=== PATIENT | female | born 1970 | race Caucasian/White ===

== ENCOUNTER 2016-04-02 13:26 | Emergency (ER) | payer OTHER ==
--- NOTE | 2016-04-02 13:49 | ERPHSYRPT ---
- History of Present Illness Time Seen by Provider: 04/02/16 13:42 Historian: patient, police Exam Limitations: no limitations Patient Subjective Stated Complaint: pt arrived police, pt is offender at local long term and is now co pain to center of chest since 1130 today. with some sob the last month, cough yellow sputum. no fever Triage Nursing Assessment: alert,skin w/d, resp easy,chest clear, no edema noted. moves all ext Physician History: The patient is a 45-year-old female who is an inmate at the local long term complaining of chest pain for about 3 hours. She's had this chest pain intermittently for the last 2 weeks. The chest pain usually lasts several hours and goes away. The chest pain is worse with deep breathing. She has had a cough for 2 weeks with yellow sputum. Pt complains fo swelling of ankles. Her past medical history is significant for COPD, CHF, and hypertension. Timing/Duration: hour(s) (3) Activities at Onset: none Quality: aching Location: central Chest Pain Radiation: no radiation Severity of Pain-Max: moderate Severity of Pain-Current: moderate Modifying Factors: Improves With: breathing, coughing Associated Symptoms: shortness of breath, hurts to breathe Prior Chest Pain/Cardiac Workup: non-cardiac Nitro Today/Relief: no nitro taken today Aspirin Treatment Today: 81 mg x 1 Allergies/Adverse Reactions: No Known Drug Allergies Allergy (Verified 04/02/16 13:47) Home Medications: Aspirin 81 gm Chew [Baby Aspirin 81 mg Chew] 81 mg PO DAILY 03/18/13 [ History] Carvedilol 3.125 mg [Coreg 3.125 MG] 12.5 mg PO BID 03/18/13 [History] Potassium Chloride 20 Meq [Klor-Con 20 MEQ] 20 meq PO DAILY 03/18/13 [History] Spironolactone 25 mg [Aldactone 25 MG] 25 mg PO DAILY 03/18/13 [History] Albuterol 2.5 mg/3 ml Neb [Proventil 2.5 mg/3 ml Neb] 2.5 mg IH BID [History] Digoxin 0.125 mg Tablet [Lanoxin 0.125MG TABLET] 0.125 mg PO DAILY [History] Albuterol 8 gm Mdi Hfa [Ventolin Hfa MDI] 8 gm IH BID 11/23/15 [History] Hx Tetanus, Diphtheria Vaccination/Date Given: No Hx Influenza Vaccination/Date Given: No Hx Pneumococcal Vaccination/Date Given: No Immunizations Up to Date: Yes - Review of Systems Constitutional: No Fever, No Chills Eyes: No Symptoms Ears, Nose, & Throat: No Symptoms Respiratory: Cough, Dyspnea Cardiac: Chest Pain Abdominal/Gastrointestinal: No Abdominal Pain, No Nausea, No Vomiting, No Diarrhea Genitourinary Symptoms: No Dysuria Musculoskeletal: No Back Pain, No Neck Pain Skin: No Rash Neurological: No Dizziness, No Focal Weakness, No Sensory Changes Psychological: No Symptoms Endocrine: No Symptoms Hematologic/Lymphatic: No Symptoms, Easy Bruising All Other Systems: Reviewed and Negative - Past Medical History Pertinent Past Medical History: Yes Neurological History: No Pertinent History ENT History: No Pertinent History Cardiac History: Congestive Heart Failure Respiratory History: CHF, COPD, Other Endocrine Medical History: No Pertinent History Musculoskeletal History: Arthritis, Fibromyalgia GI Medical History: Gallbladder Disease, Irritable Bowel, Other History: No Pertinent History Psycho-Social History: Anxiety, Depression Female Reproductive Disorders: No Pertinent History Other Medical History: manic depression, - Past Surgical History Past Surgical History: Yes Neuro Surgical History: No Pertinent History Cardiac: No Pertinent History Respiratory: No Pertinent History Gastrointestinal: No Pertinent History, Cholecystectomy Genitourinary: No Pertinent History Musculoskeletal: No Pertinent History Female Surgical History: Lumpectomy Other Surgical History: TONSIL - Social History Smoking Status: Current some day smoker How long have you smoked: 20 YEARS Exposure to second hand smoke: No Drug Use: methamphetamines Patient Lives Alone: No - Female History Hx Last Menstrual Period: Hx Now: No - Nursing Vital Signs Temperature: 97.4 F Temperature Source: Oral Pulse Rate: 79 Respiratory Rate: 14 Blood Pressure: 139/80 Pain Intensity: 8 - Physical Exam General Appearance: no apparent distress, alert Eye Exam: PERRL/EOMI, eyes nml inspection Ears, Nose, Throat Exam: normal ENT inspection, moist mucous membranes Neck Exam: normal inspection, non-tender, supple, full range of motion Respiratory Exam: normal breath sounds, chest tenderness Cardiovascular Exam: regular rate/rhythm, normal heart sounds Gastrointestinal/Abdomen Exam: soft, No tenderness, No mass Pelvic Exam: not done Rectal Exam: not done Back Exam: normal inspection, No CVA tenderness, No vertebral tenderness Extremity Exam: normal inspection, normal range of motion, pedal edema (1+) Neurologic Exam: alert, oriented x 3, cooperative, normal mood/affect, sensation nml, No motor deficits Skin Exam: normal color, warm, dry SpO2 Interpretation: normal SpO2: 100 Oxygen Delivery: Room Air - Course EKG Interpreted by Me: Sinus Rhythm, NORMAL AXIS, NORMAL INTERVALS, NORMAL QRS, NORMAL ST-T (No change compared to EKG 11/23/15.) - Radiology Exams Chest X-ray Interpretation: Teleradiologist Report, Negative Ordered Tests: Active Orders 24 hr Category Date Time Status CHEST 2 VIEWS (PA AND LAT) Stat Exams 04/02/16 13:50 Completed CBC W DIFF Stat Lab 04/02/16 14:02 Completed CMP Stat Lab 04/02/16 14:02 Completed DIGOXIN Stat Lab 04/02/16 14:02 Completed NT PRO BNP Stat Lab 04/02/16 14:02 Completed TROPONIN Q3H Lab 04/02/16 17:00 Ordered TROPONIN Q3H Lab 04/02/16 20:00 Ordered TROPONIN Q3H Lab 04/02/16 23:00 Ordered TROPONIN Q3H Lab 04/03/16 02:00 Ordered TROPONIN Stat Lab 04/02/16 14:02 Completed Medication Summary Discontinued Medications Generic Name Dose Route Start Last Admin Trade Name Freq PRN Reason Stop Dose Admin Ketorolac Tromethamine 60 mg 04/02/16 13:52 04/02/16 14:13 Toradol 30 Mg Injection IM 04/02/16 13:53 60 mg STAT ONE Administration Ketorolac Tromethamine Confirm 04/02/16 14:12 Toradol 30 Mg Injection Administered 04/02/16 14:13 Dose 60 mg .ROUTE .[facility] ONE Lab/Rad Data: Laboratory Result Diagrams 04/02/16 14:02 04/02/16 14:02 Laboratory Results 04/02/16 04/02/16 04/02/16 Range/Units 14:02 14:02 14:02 WBC 6.1 (4.0-10.5) K/mm3 RBC 4.50 (4.1-5.4) M/mm3 Hgb 12.9 (12.0-16.0) gm/dl Hct 39.9 (35-47) % MCV 88.7 (78-100) fl MCH 28.7 (26-32) pg MCHC 32.3 (32-36) g/dl RDW 13.2 (11.5-14.0) % Plt Count 262 (150-450) K/mm3 MPV 9.3 (6-9.5) fl Gran % 56.6 (36.0-66.0) % Lymphocytes % 31.2 (24.0-44.0) % Monocytes % 8.8 (0.0-12.0) % Eosinophils % 2.9 (0.00-5.0) % Basophils % 0.5 (0.0-0.4) % Basophils # 0.03 (0-0.4) Sodium 140 (136-145) mEq/L Potassium 3.6 (3.5-5.1) mEq/L Chloride 100 (98-107) mEq/L Carbon Dioxide 31.3 (21-32) mEq/L Anion Gap 12.5 (5-15) MEQ/L BUN 14 (9-20) mg/dL Creatinine 0.93 (0.55-1.30) mg/dl Estimated GFR > 60 ML/MIN Glucose 102 (70-110) MG/DL Calcium 9.3 (8.5-10.1) mg/dL Total Bilirubin 0.4 (0.2-1.0) mg/dL AST 17 (15-37) U/L ALT 20 (12-78) U/L Alkaline Phosphatase 137 H (46-116) U/L Troponin I < 0.017 (0.000-0.056) ng/ml NT-Pro-B Natriuret Pep < 5.0 (0-125) pg/ml Serum Total Protein 7.7 (6.4-8.2) gm/dL Albumin 4.2 (3.4-5.0) g/dL Digoxin 0.76 L (0.9-2.0) ng/ml - Progress Progress: unchanged Air Movement: good Blood Culture(s) Obtained: No Antibiotics given: No Counseled pt/family regarding: lab results, diagnosis, need for follow-up, rad results - Departure Time of Disposition: 15:11 Departure Disposition: Home Clinical Impression: Chest pain of unknown etiology Condition: Stable Critical Care Time: No Additional Instructions: Tylenol and Ibuprofen as needed. Your lab values and chest xray were normal except for the digoxin level which was slightly low. Follow up with your punch press operator helper.
[2016-04-02] MEDS ORDERED: TORAdol 30 mg Injection IM ONE (13:52)
[2016-04-02 14:11] LABS: BASOPHIL % 0.5 % (0.0-0.4); Eosinophil % 2.9 % (0.00-5.0); Granulocytes % 56.6 % (36.0-66.0); Lymphocytes % 31.2 % (24.0-44.0); Mean Cell Volume 88.7 fl (78-100); Mean Corpuscular Hemoglobin 28.7 pg (26-32); Mean Platelet Volume 9.3 fl (6-9.5); Monocytes % 8.8 % (0.0-12.0); Platelet Count 262 K/mm3 (150-450); Red Cell Distribution Width 13.2 % (11.5-14.0); White Blood Count 6.1 K/mm3 (4.0-10.5)
[2016-04-02] MEDS ORDERED: TORAdol 30 mg Injection ONE (14:12)
--- NOTE | 2016-04-02 14:16 | XRAY ---
Indication: Chest pain and cough. Comparison: March 29, 2016 PA/lateral chest remains hyperinflated and clear with stable right lung calcified granuloma and left Port-A-Cath. Heart is not enlarged. Vascularity normal. Bony thorax intact. Impression: Stable nonacute chest with chronic features.
[2016-04-02 14:39] LABS: ALBUMIN 4.2 g/dL (3.4-5.0); ALKALINE PHOSPHATASE 137 U/L (46-116); ANION GAP 12.5 MEQ/L (5-15); BILIRUBIN,TOTAL 0.4 mg/dL (0.2-1.0); BLOOD UREA NITROGEN 14 mg/dL (9-20); CHLORIDE 100 mEq/L (98-107); Carbon Dioxide 31.3 mEq/L (21-32); Glucose 102 MG/DL (70-110); Potassium 3.6 mEq/L (3.5-5.1); SGOT/AST 17 U/L (15-37); SGPT/ALT 20 U/L (12-78); SODIUM 140 mEq/L (136-145); Total Protein 7.7 gm/dL (6.4-8.2)
[2016-04-02 14:48] LABS: TROPONIN < 0.017 ng/ml (0.000-0.056)
[2016-04-02 15:28] VITALS: BP 112/66; PULSE 67; O2SAT 98
== END 2016-04-02 15:27 | disposition home or self-care (01) ==
LOC: ED 13:26
DX: R07.89 Other chest pain (principal); F41.9 Anxiety disorder, unspecified; J44.9 Chronic obstructive pulmonary disease, unspecified; I50.9 Heart failure, unspecified; I10 Essential (primary) hypertension; Z79.899 Other long term (current) drug therapy
CPT/HCPCS: 36415; 71020; 80053; 80162; 83880; 84484; 85025; 99283; J1642; J1885

== ENCOUNTER 2017-06-14 12:12 | Emergency (ER) | payer OTHER ==
[2017-06-14] MEDS ORDERED: BABY ASPIRIN 81 MG CHEW PO ONE (12:32)
--- NOTE | 2017-06-14 12:40 | ERPHSYRPT ---
- History of Present Illness Time Seen by Provider: 06/14/17 12:34 Historian: patient Exam Limitations: no limitations Patient Subjective Stated Complaint: Pt states "I have been having a hard time with my heart. I have been having chest pain, difficulty breathing and they took me off my water pill so I think I have been swelling as well. I am supposed to go get an echo done tomorrow in [place]." Triage Nursing Assessment: Pt alert and oriented X 3, skin pwd. Pt ambulates without difficulty, able to speak in clear full sentences. PT in no apparent respiratory distress. Physician History: This is a 46-year-old white female with history of congestive heart failure COPD arthritis fibromyalgia. She arrives with complaint of pain in her anterior chest and under her left breast symptoms radiating up to her next going on for one month. She states that she has worse pain with breathing she states she feels short of breath she has no nausea no vomiting no diarrhea. Patient states she is scheduled for an echocardiogram with Dr. Guardado tomorrow. Past medical history includes CHF, COPD, arthritis, fibromyalgia, gallbladder disease, irritable bowel, anxiety, depression, Past surgical history includes cholecystectomy lumpectomy and tonsils Social history patient has used methamphetamines in the past as well as tobacco Patient states she has not had a period for about a year She states she is not Timing/Duration: other (symptoms for a month) Quality: dullness Location: substernal, other (under left breast radiating to neck and left shoulder) Chest Pain Radiation: neck, arm Severity of Pain-Max: moderate Severity of Pain-Current: moderate Modifying Factors: Improves With: nothing Associated Symptoms: shortness of breath, hurts to breathe, No nausea, No vomiting, No palpitations, No heartburn, No abdominal pain, No cough, No diaphoresis, No chills, No fever, No fatigue, No weakness, No swelling/lump in chest, No syncope, No rash, No headache, No dizziness, No edema, No back pain Nitro Today/Relief: no nitro taken today Aspirin Treatment Today: 81 mg x 4, provided by ED Allergies/Adverse Reactions: No Known Drug Allergies Allergy (Verified 06/14/17 12:33) Home Medications: Carvedilol 3.125 mg [Coreg 3.125 MG] 12.5 mg PO BID 03/18/13 [History] Potassium Chloride 20 Meq [Klor-Con 20 MEQ] 20 meq PO DAILY 03/18/13 [History] Spironolactone 25 mg [Aldactone 25 MG] 25 mg PO DAILY 03/18/13 [History] Albuterol 2.5 mg/3 ml Neb [Proventil 2.5 mg/3 ml Neb] 2.5 mg IH BID [History] Digoxin 0.125 mg Tablet [Lanoxin 0.125MG TABLET] 0.125 mg PO DAILY [History] Albuterol 8 gm Mdi Hfa [Ventolin Hfa MDI] 8 gm IH BID 11/23/15 [History] Ciclesonide [Alvesco] 6.1 gm IH DAILY 06/14/17 [History] Hx Tetanus, Diphtheria Vaccination/Date Given: No Hx Influenza Vaccination/Date Given: No Hx Pneumococcal Vaccination/Date Given: No Immunizations Up to Date: Yes - Review of Systems Constitutional: No Fever, No Chills Eyes: No Symptoms Ears, Nose, & Throat: No Symptoms Respiratory: Dyspnea, No Cough Cardiac: Chest Pain Abdominal/Gastrointestinal: No Abdominal Pain, No Nausea, No Vomiting, No Diarrhea Genitourinary Symptoms: No Dysuria Musculoskeletal: No Back Pain, No Neck Pain Skin: No Rash Neurological: No Dizziness, No Focal Weakness, No Sensory Changes Psychological: No Symptoms Endocrine: No Symptoms All Other Systems: Reviewed and Negative - Past Medical History Pertinent Past Medical History: Yes Neurological History: No Pertinent History ENT History: No Pertinent History Cardiac History: Congestive Heart Failure Respiratory History: CHF, COPD, Other Endocrine Medical History: No Pertinent History Musculoskeletal History: Arthritis, Fibromyalgia GI Medical History: Gallbladder Disease, Irritable Bowel, Other History: No Pertinent History Psycho-Social History: Anxiety, Depression Female Reproductive Disorders: No Pertinent History Other Medical History: manic depression, - Past Surgical History Past Surgical History: Yes Neuro Surgical History: No Pertinent History Cardiac: No Pertinent History Respiratory: No Pertinent History Gastrointestinal: No Pertinent History, Cholecystectomy Genitourinary: No Pertinent History Musculoskeletal: No Pertinent History Female Surgical History: Lumpectomy Other Surgical History: TONSIL - Social History Smoking Status: Former smoker How long have you smoked: 20 YEARS Exposure to second hand smoke: No Drug Use: methamphetamines Patient Lives Alone: No - Female History Hx Last Menstrual Period: 1 year ago Hx Now: No - Nursing Vital Signs Nursing Vital Signs: Initial Vital Signs Temperature 98.2 F 06/14/17 12:17 Pulse Rate 70 06/14/17 12:17 Respiratory Rate 18 06/14/17 12:17 Blood Pressure 121/80 06/14/17 12:17 O2 Sat by Pulse Oximetry 98 06/14/17 12:17 Pain Scale Pain Intensity 0 - Physical Exam General Appearance: mild distress Eye Exam: PERRL/EOMI, eyes nml inspection Ears, Nose, Throat Exam: normal ENT inspection, moist mucous membranes Neck Exam: normal inspection, non-tender, supple, full range of motion Respiratory Exam: normal breath sounds, lungs clear, No respiratory distress Cardiovascular Exam: regular rate/rhythm, normal heart sounds Gastrointestinal/Abdomen Exam: soft, No tenderness, No mass Back Exam: normal inspection, No CVA tenderness, No vertebral tenderness Extremity Exam: normal inspection, normal range of motion Neurologic Exam: alert, oriented x 3, cooperative, normal mood/affect, sensation nml, No motor deficits Skin Exam: normal color, warm, dry SpO2 Interpretation: normal (98%) SpO2: 98 Oxygen Delivery: Room Air - Course Nursing assessment & vital signs reviewed: Yes EKG Interpreted by Me: RATE (73 bpm), Other (EKG: regular sinus rhythm with PVC [address] or t wave changes, compared to 04/02/2016) - Radiology Exams Chest X-ray Interpretation: Discussed w/ radiologist (subtle right lung base atelectasis vs infiltrate , stable right mid lung calcified granuloma, remaining heart, left lung and bony thorax normal) Ordered Tests: Active Orders 24 hr Category Date Time Status Veterinary Assistant Technician STAT Care 06/14/17 12:33 Active EKG-ER Only STAT Care 06/14/17 12:32 Active EKG-ER Only STAT Care 06/14/17 17:20 Active IV Insertion STAT Care 06/14/17 12:32 Active CHEST 1 VIEW (PORTABLE) Stat Exams 06/14/17 12:33 Completed CBC W DIFF Stat Lab 06/14/17 12:55 Completed CMP Stat Lab 06/14/17 12:55 Completed D-DIMER QUANTITATION Stat Lab 06/14/17 12:55 Completed HCG QUALITATIVE,SERUM Stat Lab 06/14/17 12:55 Completed NT PRO BNP Stat Lab 06/14/17 12:55 Completed PROTIME WITH INR Stat Lab 06/14/17 12:55 Completed PTT Stat Lab 06/14/17 12:55 Completed TROPONIN Q3H Lab 06/14/17 12:45 Completed TROPONIN Q3H Lab 06/14/17 16:10 Completed TROPONIN Q3H Lab 06/14/17 18:45 Ordered TROPONIN Q3H Lab 06/14/17 21:45 Ordered TROPONIN Q3H Lab 06/15/17 00:45 Ordered Medication Summary Discontinued Medications Generic Name Dose Route Start Last Admin Trade Name Freq PRN Reason Stop Dose Admin Aspirin 324 mg 06/14/17 12:32 06/14/17 12:59 Baby Aspirin 81 Mg Chew PO 06/14/17 12:33 324 mg STAT ONE Administration Aspirin Confirm 06/14/17 12:42 Baby Aspirin 81 Mg Chew Administered 06/14/17 12:43 Dose 324 mg .ROUTE .[facility] ONE Lab/Rad Data: Laboratory Result Diagrams 06/14/17 12:55 06/14/17 12:55 Laboratory Results 06/14/17 06/14/17 06/14/17 Range/Units 16:10 12:55 12:55 WBC (4.0-10.5) K/mm3 RBC (4.1-5.4) M/mm3 Hgb (12.0-16.0) gm/dl Hct (35-47) % MCV (78-100) fl MCH (26-32) pg MCHC (32-36) g/dl RDW (11.5-14.0) % Plt Count (150-450) K/mm3 MPV (6-9.5) fl Gran % (36.0-66.0) % Lymphocytes % (24.0-44.0) % Monocytes % (0.0-12.0) % Eosinophils % (0.00-5.0) % Basophils % (0.0-0.4) % Basophils # (0-0.4) INR (0.8-3.0) APTT (25.3-37.0) SECONDS D-Dimer (215-500) ng/mL Sodium (137-145) mmol/L Potassium (3.5-5.1) mmol/L Chloride (98-107) mmol/L Carbon Dioxide (22-30) mmol/L Anion Gap (5-15) MEQ/L BUN (7-17) mg/dL Creatinine (0.52-1.04) mg/dL Estimated GFR ML/MIN Glucose (74-106) mg/dL Calcium (8.4-10.2) mg/dL Total Bilirubin (0.2-1.3) mg/dL AST (14-36) U/L ALT (0-35) U/L Alkaline Phosphatase (38-126) U/L Troponin I < 0.012 (0.000-0.034) ng/mL NT-Pro-B Natriuret Pep (0-450) pg/mL Serum Total Protein (6.3-8.2) g/dL Albumin (3.5-5.0) g/dL Serum , Qual NEGATIVE (Negative) Digoxin 0.9 (0.8-1.9) ng/mL 06/14/17 06/14/17 06/14/17 Range/Units 12:55 12:55 12:55 WBC 7.6 (4.0-10.5) K/mm3 RBC 4.43 (4.1-5.4) M/mm3 Hgb 13.2 (12.0-16.0) gm/dl Hct 40.5 (35-47) % MCV 91.4 (78-100) fl MCH 29.8 (26-32) pg MCHC 32.6 (32-36) g/dl RDW 12.0 (11.5-14.0) % Plt Count 252 (150-450) K/mm3 MPV 9.9 H (6-9.5) fl Gran % 55.1 (36.0-66.0) % Lymphocytes % 33.7 (24.0-44.0) % Monocytes % 7.9 (0.0-12.0) % Eosinophils % 2.8 (0.00-5.0) % Basophils % 0.5 (0.0-0.4) % Basophils # 0.04 (0-0.4) INR 1.02 (0.8-3.0) APTT 24.1 L (25.3-37.0) SECONDS D-Dimer 329.14 (215-500) ng/mL Sodium 142 (137-145) mmol/L Potassium 3.7 (3.5-5.1) mmol/L Chloride 100 (98-107) mmol/L Carbon Dioxide 31 H (22-30) mmol/L Anion Gap 14.9 (5-15) MEQ/L BUN 21 H (7-17) mg/dL Creatinine 0.70 (0.52-1.04) mg/dL Estimated GFR > 60 ML/MIN Glucose 111 H (74-106) mg/dL Calcium 9.5 (8.4-10.2) mg/dL Total Bilirubin 0.30 (0.2-1.3) mg/dL AST 58 H (14-36) U/L ALT 69 H (0-35) U/L Alkaline Phosphatase 117 (38-126) U/L Troponin I (0.000-0.034) ng/mL NT-Pro-B Natriuret Pep 23.7 (0-450) pg/mL Serum Total Protein 7.4 (6.3-8.2) g/dL Albumin 4.4 (3.5-5.0) g/dL Serum , Qual (Negative) Digoxin (0.8-1.9) ng/mL 06/14/17 Range/Units 12:45 WBC (4.0-10.5) K/mm3 RBC (4.1-5.4) M/mm3 Hgb (12.0-16.0) gm/dl Hct (35-47) % MCV (78-100) fl MCH (26-32) pg MCHC (32-36) g/dl RDW (11.5-14.0) % Plt Count (150-450) K/mm3 MPV (6-9.5) fl Gran % (36.0-66.0) % Lymphocytes % (24.0-44.0) % Monocytes % (0.0-12.0) % Eosinophils % (0.00-5.0) % Basophils % (0.0-0.4) % Basophils # (0-0.4) INR (0.8-3.0) APTT (25.3-37.0) SECONDS D-Dimer (215-500) ng/mL Sodium (137-145) mmol/L Potassium (3.5-5.1) mmol/L Chloride (98-107) mmol/L Carbon Dioxide (22-30) mmol/L Anion Gap (5-15) MEQ/L BUN (7-17) mg/dL Creatinine (0.52-1.04) mg/dL Estimated GFR ML/MIN Glucose (74-106) mg/dL Calcium (8.4-10.2) mg/dL Total Bilirubin (0.2-1.3) mg/dL AST (14-36) U/L ALT (0-35) U/L Alkaline Phosphatase (38-126) U/L Troponin I < 0.012 (0.000-0.034) ng/mL NT-Pro-B Natriuret Pep (0-450) pg/mL Serum Total Protein (6.3-8.2) g/dL Albumin (3.5-5.0) g/dL Serum , Qual (Negative) Digoxin (0.8-1.9) ng/mL - Progress Progress: improved Air Movement: fair Progress Note: 06/14/17 15:01 This is a 46-year-old white female with history of congestive heart failure COPD arthritis fibromyalgia gallbladder disease irritable bowel anxiety. She complains of chest chest pain for a month which is a anterior sternal and inferior to the left breast she states she has shortness of breath she has pain with breathing with this. Patient is seen here in the emergency room with the above complaints that she has an EKG that shows sinus rhythm with PVC 73 bpm normal axis there do not appear to be acute ST or T wave changes as compared to prior EKG which was done April 02, 2016 patient has normal troponin chest x- ray shows atelectasis in the right base versus subtle right base infiltrate patient does not have a white count nor does she have a fever oxygen saturations are within normal limits lungs are clear patient's labs are essentially normal D dimer within normal limits digoxin is 0.09 I've discussed the case with Dr. Guardado he states the patient recently had a catheter has normal coronary arteries patient is scheduled to have an echo tomorrow. Dr. Guardado feels that we can repeat the patient's troponin 3 hours after last draw and that if this is normal she can be released, 06/14/17 17:22 Patient's second troponin has been drawn and is pending. Patient apparently had told her guard that she was having chest pain again. EKG is obtained. EKG time June 14, 2017 5:20 PM. EKG: Sinus rhythm with PVCs 68 bpm, axis: SI/QIII pattern, no acute ST or T wave changes noted 06/14/17 17:28 the patient's troponin is normal. I discussed the patient pain she described it is quick, grabbing, and occuring with breathing. Patient is stable she has had 2 normal troponins chest x-ray shows some atelectasis versus subtle infiltrate on the right white count is normal patient has no fevers pulse ox is 99% d-dimer is within normal limits. Will discharge patient. Tylenol for pain. Patient is scheduled for an echocardiogram tomorrow. - Departure Time of Disposition: 17:31 Departure Disposition: Home Clinical Impression: Chest pain Qualifiers: Chest pain type: unspecified Qualified Code(s): R07.9 - Chest pain, unspecified Condition: Fair Critical Care Time: No Referrals: DANIEL OSBORNE [Primary Care Provider] - Additional Instructions: Return home. Rest. Tylenol every 4 hours as needed for pain. Keep your appointment for your echocardiogram tomorrow. Follow-up with your family doctor or your adult school teacher. Return for acute distress or for severe symptoms.
[2017-06-14] MEDS ORDERED: BABY ASPIRIN 81 MG CHEW ONE (12:42)
--- NOTE | 2017-06-14 12:56 | XRAY ---
Indication: Chest pain and short of breath. Comparison: April 02, 2016. Portable chest now demonstrates subtle right base infiltrate versus atelectasis. Stable right mid lung calcified granuloma and left Port-A-Cath. Remaining heart, left lung, and bony thorax normal.
[2017-06-14 13:12] LABS: BASOPHIL % 0.5 % (0.0-0.4); Basophil (Absolute #) 0.04 (0-0.4); Eosinophil % 2.8 % (0.00-5.0); Eosinophil (Absolute #) 0.21 (0-0.5); Granulocyte Absolute (ANC) 4.17 (1.4-6.9); Granulocytes % 55.1 % (36.0-66.0); Hematocrit 40.5 % (35-47); Hemoglobin 13.2 gm/dl (12.0-16.0); Lymphocyte (Absolute #) 2.55 (1.0-4.6); Lymphocytes % 33.7 % (24.0-44.0); Mean Cell Volume 91.4 fl (78-100); Mean Corpuscular Hemoglobin 29.8 pg (26-32); Mean Corpuscular Hgb Concent. 32.6 g/dl (32-36); Mean Platelet Volume 9.9 fl (6-9.5); Monocytes % 7.9 % (0.0-12.0); Platelet Count 252 K/mm3 (150-450); Red Blood Count 4.43 M/mm3 (4.1-5.4); White Blood Count 7.6 K/mm3 (4.0-10.5)
[2017-06-14 14:24] LABS: INR 1.02 (0.8-3.0)
[2017-06-14 14:26] LABS: D-DIMER QUANTITATION 329.14 ng/mL (215-500); PTT 24.1 SECONDS (25.3-37.0)
[2017-06-14 14:29] LABS: ALBUMIN 4.4 g/dL (3.5-5.0); ALKALINE PHOSPHATASE 117 U/L (38-126); ANION GAP 14.9 MEQ/L (5-15); CHLORIDE 100 mmol/L (98-107); Calcium 9.5 mg/dL (8.4-10.2); Carbon Dioxide 31 mmol/L (22-30); Glucose 111 mg/dL (74-106); Potassium 3.7 mmol/L (3.5-5.1); SGOT/AST 58 U/L (14-36); SGPT/ALT 69 U/L (0-35); SODIUM 142 mmol/L (137-145); Total Protein 7.4 g/dL (6.3-8.2)
[2017-06-14 14:36] LABS: NT PRO BNP 23.7 pg/mL (0-450)
[2017-06-14 14:40] LABS: BLOOD UREA NITROGEN 21 mg/dL (7-17)
[2017-06-14 15:04] VITALS: O2SAT 98
[2017-06-14 17:46] VITALS: BP 99/58; PULSE 70
== END 2017-06-14 17:56 | disposition home or self-care (01) ==
LOC: ED 12:12
DX: R07.9 Chest pain, unspecified (principal); I50.9 Heart failure, unspecified; J44.9 Chronic obstructive pulmonary disease, unspecified; M19.90 Unspecified osteoarthritis, unspecified site; M79.7 Fibromyalgia; F41.8 Other specified anxiety disorders; Z72.0 Tobacco use; Z79.899 Other long term (current) drug therapy
CPT/HCPCS: 36000; 36415; 71045; 80053; 80162; 83880; 84484; 84703; 85025; 85379; 85610; 85730; 93005; 93041; 99284; J1642; A9270-GY

== ENCOUNTER 2018-04-30 20:23 | Emergency (ER) | payer OTHER ==
[2018-04-30] MEDS ORDERED: EPINEPHRINE ABBOJECT 1 MG IV ONE (20:24)
[2018-04-30] MEDS ORDERED: SODIUM BICARBONATE 50 MEQ/50 ML ABBOJECT IV ONE (20:24)
[2018-04-30] MEDS ORDERED: Cordarone 150 MG/3 ML Injection IJ ONE (20:24)
[2018-04-30] MEDS ORDERED: NARCAN 2 MG/2 ML IV ONE (20:24)
--- NOTE | 2018-04-30 21:52 | ERPHSYRPT ---
- History of Present Illness Source: EMS, police Exam Limitations: physical impairment (intubated, in cardiac arrest) Patient Subjective Stated Complaint: EMS dispatched at 2002 to [facility] for unresponsive female. EMS states she was found in holding with agonal respirations and no palpable pulse, [facility] staff began BLS, with chest compressions. Triage Nursing Assessment: pt is unresponsive upon arrival, pt is intubated, bagging per EMS, CPR in progress, pt is cyanotic, pt has no palpable pulse. no obvious injury or deformity noted. pt skin is cool, dry. Physician History: Pt presented from [facility]. Was found to have agonal breathing. Pt was brought to the ED, was intubated, and bagged. CPR was in progress. Pt was non responsive. Timing/Duration: today Severity: severe Allergies/Adverse Reactions: No Known Drug Allergies Allergy (Verified 06/14/17 12:33) Home Medications: Carvedilol 3.125 mg [Coreg 3.125 MG] 12.5 mg PO BID 03/18/13 [History] Potassium Chloride 20 Meq [Klor-Con 20 MEQ] 20 meq PO DAILY 03/18/13 [History] Spironolactone 25 mg [Aldactone 25 MG] 25 mg PO DAILY 03/18/13 [History] Albuterol 2.5 mg/3 ml Neb [Proventil 2.5 mg/3 ml Neb] 2.5 mg IH BID [History] Digoxin 0.125 mg Tablet [Lanoxin 0.125MG TABLET] 0.125 mg PO DAILY [History] Albuterol 8 gm Mdi Hfa [Ventolin Hfa MDI] 8 gm IH BID 11/23/15 [History] Ciclesonide [Alvesco] 6.1 gm IH DAILY 06/14/17 [History] Hx Tetanus, Diphtheria Vaccination/Date Given: (unk) Hx Influenza Vaccination/Date Given: (unk) Hx Pneumococcal Vaccination/Date Given: (unk) Immunizations Up to Date: (unk) - Past Medical History Pertinent Past Medical History: Yes Neurological History: No Pertinent History ENT History: No Pertinent History Cardiac History: Congestive Heart Failure Respiratory History: CHF, COPD, Other Endocrine Medical History: No Pertinent History Musculoskeletal History: Arthritis, Fibromyalgia GI Medical History: Gallbladder Disease, Irritable Bowel, Other History: No Pertinent History Psycho-Social History: Anxiety, Depression Female Reproductive Disorders: No Pertinent History Other Medical History: manic depression, - Past Surgical History Past Surgical History: Yes Neuro Surgical History: No Pertinent History Cardiac: No Pertinent History Respiratory: No Pertinent History Gastrointestinal: No Pertinent History, Cholecystectomy Genitourinary: No Pertinent History Musculoskeletal: No Pertinent History Female Surgical History: Lumpectomy Other Surgical History: TONSIL - Social History Smoking Status: Unknown if ever smoked How long have you smoked: 20 YEARS Exposure to second hand smoke: No Drug Use: methamphetamines Patient Lives Alone: No - Female History Hx Now: (unk) - Nursing Vital Signs Nursing Vital Signs: Initial Vital Signs Temperature 94.6 F 04/30/18 20:32 - Physical Exam General Appearance: other (Pt is non responsive, intubated, bagged and in VF when she came, and changed to PEA.) - Course Nursing assessment & vital signs reviewed: Yes Ordered Tests: Active Orders 24 hr Category Date Time Status Catheter-[place] STAT Care 04/30/18 21:30 Active ETHYL ALCOHOL Stat Lab 04/30/18 20:50 Received Urine Triage Profile Stat Lab 04/30/18 20:50 Received [place] STAT RT 04/30/18 21:21 Completed - Progress Progress: unchanged (Pt decrared post unsuccessful ACLS.) Progress Note: Pt presented to the ED intubated and with CPR in progress. ACLS was started in the ED, and pt did get multiple Epi doses, shocks, Calcium, Bicarb, Atropine, and Amiodarone. The code was not successful and pt was pronounced . State police took over the case. 04/30/18 21:50 - Departure Time of Disposition: 20:55 Departure Disposition: Clinical Impression: Cardiac arrest Condition: Critical Care Time: Yes Critical Care Time(excluding separately billable procedures): 30-74 minutes Referrals: DANIEL OSBORNE [Primary Care Provider] -
[2018-04-30 22:00] LABS: Barbiturate,Urine NEGATIVE (NEGATIVE); Benzodiazepine,Urine NEGATIVE (NEGATIVE); Cocaine,Urine NEGATIVE (NEGATIVE); Methadone,Urine NEGATIVE (NEGATIVE); Opiate,Urine NEGATIVE (NEGATIVE); PCP,Urine NEGATIVE (NEGATIVE); THC,Urine NEGATIVE (NEGATIVE)
[2018-04-30 22:25] LABS: Amphetamine,Urine POSITIVE (NEGATIVE)
== END 2018-04-30 20:55 | disposition expired ==
LOC: ED 20:23
DX: I46.9 Cardiac arrest, cause unspecified (principal); Z79.899 Other long term (current) drug therapy; I50.9 Heart failure, unspecified; J44.9 Chronic obstructive pulmonary disease, unspecified; M19.90 Unspecified osteoarthritis, unspecified site; M79.7 Fibromyalgia; F41.8 Other specified anxiety disorders; F15.90 Other stimulant use, unspecified, uncomplicated
CPT/HCPCS: 36415; 51702; 80307; 92950; 94799; 96374; 96375; 99284; 99291; J0171; J0282; J2310; G0480